=== PATIENT | female | born 1975 | race Caucasian/White ===

== ENCOUNTER 2016-05-11 08:20 | Outpatient (CLI) | payer MEDICAID | END 2016-05-11 08:21 | disposition home or self-care (01) | DX: E66.9 Obesity, unspecified (principal); F41.8 Other specified anxiety disorders ==

== ENCOUNTER 2017-10-13 12:08 | Emergency (ER) | payer MEDICAID ==
[2017-10-13 12:14] VITALS: BP 144/84
--- NOTE | 2017-10-13 12:59 | ED Physician Documentation ---
PD HPI OPHTHO - Stated complaint Stated Complaint: R EYE REDNESS - Chief complaint Chief Complaint: Heent - History obtained from History obtained from: Patient - History of Present Illness Timing - onset: How many days ago (2) Timing - duration: Days (2) Timing - details: Gradual onset, Still present Location: Right Quality / character: Itching, Burning Associated symptoms: Redness, Swelling Similar symptoms before: Diagnosis (staph infection in eyelid) Recently seen: Not recently seen - Additional information Additional information: Previously well 42-year-old female is developed some swelling and burning sensation to the right eye. She has had this happen to her previously with staph infection that required oral antibiotic as well as drops. She has also had previously shingles in the cheek on that side. She has not had shingles on the cornea. She denies foreign body sensation she does have some photosensitivity. Review of Systems Constitutional: denies: Fever Eyes: reports: Photophobia, Discharge, Irritation. denies: Decreased vision Ears: denies: Ear pain Nose: denies: Rhinorrhea / runny nose, Congestion Throat: denies: Sore throat Cardiac: denies: Chest pain / pressure, Palpitations Respiratory: denies: Dyspnea, Cough PD PAST MEDICAL HISTORY - Past Medical History Past Medical History: Yes Cardiovascular: None Respiratory: Asthma, Sleep apnea GI: None : None Psych: Depression Musculoskeletal: None Derm: Herpes zoster - Past Surgical History Past Surgical History: Yes HEENT: Myringotomy (tubes), Tonsil/Adenoidectomy - Present Medications Home Medications: Ambulatory Orders Medication Instructions Recorded Confirmed Albuterol Sulfate [Proair Hfa] 8.5 gm IH Q4HR 09/12/12 10/12/14 Lisinopril [Prinivil] 20 mg PO DAILY 09/12/12 10/12/14 Vit D3/Folic Acid/B2/B6/B12 1 intlu PO DAILY 09/18/12 10/12/14 [Folgard Tablet] Albuterol 2.5 mg INH Q4HR PRN 10/12/14 10/12/14 Cyclobenzaprine [Flexeril] 10 mg ORAL DAILY 10/13/17 10/13/17 Gabapentin 300 mg PO 10/13/17 Neomycin/Poly/Dex Ophth Drops 1 drops RIGHTEYE QID #1 bottle 10/13/17 [Maxitrol Ophth Drops] - Allergies Allergies/Adverse Reactions: Allergies Allergy/AdvReac Type Severity Reaction Status Date / Time Penicillins Allergy Intermediate Rash Verified 10/13/17 12:14 - Social History Does the pt smoke?: No Smoking Status: Never smoker Does the pt drink ETOH?: Yes Does the pt have substance abuse?: No - Immunizations Immunizations: TDAP current <10years - POLST Patient has POLST: No PD ED PE NORMAL - Vitals Vital signs reviewed: Yes (hypertensive) - General General: No acute distress, Well developed/nourished - HEENT HEENT: Atraumatic, PERRL, EOMI, Ears normal, Moist mucous membranes, Pharynx benign, Dentition benign, Other (There is swelling and tenderness to the medial lower lid on the right side. There scleral injection and there is no obvious corneal involvment. ) - Respiratory Respiratory: No respiratory distress - Derm Derm: Normal color, Warm and dry, No rash - Extremities Extremities: No deformity, No edema - Neuro Neuro: Alert and oriented X 3, showroom consultant 2-12 intact, No motor deficit, No sensory deficit, Normal speech Eye Opening: Spontaneous Motor: Obeys Commands Verbal: Oriented GCS Score: 15 - Psych Psych: Normal mood, Normal affect Results - Vitals Vitals: Vital Signs - 24 hr 10/13/17 12:12 Temperature 36.3 C L Heart Rate 78 Respiratory 18 Rate Blood Pressure 144/84 H O2 Saturation 97 Oxygen O2 Source Room air PD MEDICAL DECISION MAKING - ED course Complexity details: reviewed old records, considered differential, d/w patient ED course: 42-year-old female with swelling of the right lower eyelid does not have an obvious chalazion or stye she does have swelling consistent with bacterial infection. I do not see any obvious vesicles to suggest herpes and the cornea does not appear to be involved. She was placed on Maxitrol I drops and will have follow-up with her primary. - Sepsis Event Vital Signs: Vital Signs - 24 hr 10/13/17 12:12 Temperature 36.3 C L Heart Rate 78 Respiratory 18 Rate Blood Pressure 144/84 H O2 Saturation 97 Oxygen O2 Source Room air Departure - Departure Disposition: 01 Home, Self Care Clinical Impression: Conjunctivitis Qualifiers: Conjunctivitis type: acute Acute conjunctivitis type: bacterial Laterality: right Qualified Code(s): H10.31 - Unspecified acute conjunctivitis, right eye Condition: Stable Instructions: ED Conjunctivitis Bacterial Follow-Up: Jessica Valencia ARNP [Primary Care Provider] - Prescriptions: Neomycin/Poly/Dex Ophth Drops [Maxitrol Ophth Drops] 1 drops RIGHTEYE QID #1 bottle
== END 2017-10-13 13:09 | disposition home or self-care (01) ==
LOC: ED 12:08
DX: H10.31 Unspecified acute conjunctivitis, right eye (principal)
CPT/HCPCS: 99283

== ENCOUNTER 2018-09-10 11:31 | Outpatient (CLI) | payer MEDICAID | END 2018-09-10 11:32 | disposition EMS.NT | LOC: EMS 11:31 | PROVIDERS: ATTEND Surgery | DX: R07.89 Other chest pain (principal); R10.9 Unspecified abdominal pain ==

== ENCOUNTER 2018-10-29 11:15 | Outpatient (CLI) | payer MEDICAID ==
[2018-10-29 12:22] VITALS: BP 140/70
--- NOTE | 2018-10-29 12:22 | SLEEP CARE CONSULTATION ---
Information from patient questionnaire entered by Merissa Dee. I have reviewed and concur with the information entered by Merissa Dee. This document represents the service I personally performed and the decisions made by me, Mahad Adan MD, [facility]. History of Present Illness Reason for Visit: New patient, Previously diagnosed sleep apnea (MODERATE KIM AHI 28.7), Re-establish care Chief Complaint: reports: Insomnia, Unrefreshed sleep, Snoring, Observed pauses in breathing, Fatigue, Frequent awakenings at night, Other Usual bedtime: 2100 Time it takes to fall asleep: 15-30 MINUTES Snores at night: Yes Observed to quit breathing while asleep: Yes Sleeps alone due to snoring: No Number of times waking at night: 2-5 Reasons for waking at night: reports: Snoring, Pain, Bathroom Toss, Turn, or Twitch while sleeping: Yes Recalls having dreams: Yes Usually gets out of bed at: [id number] Feels refreshed in the morning: No Morning headache: Yes (SOMETIMES) Sleepy or fatigued during the day: Yes (SLEEPY MORE AT THE ENDOF MY WORK WEEK. MORE FATIGUED) Ever fallen asleep while driving: Yes (YEARS AGO, NOT RECENTLY) Takes day naps: Yes (RARELY) Dreams during day naps: Yes (SOMETIMES) Prior sleep studies: Yes Year and Where: 2007 [facility] Additional HPI information: I had the pleasure of seeing Ms. Starr today regarding obstructive sleep apnea- hypopnea. As you know, she is a 43 year old lady who was diagnosed here over a decade ago with moderate obstructive sleep apnea-hypopnea (AHI was 28.7). She tried to use CPAP for a short time then quit. She continues to snore and relatives see her quit breathing at night. She feels tired and sleepy during the day. She is hoping that the equipment has improved and she would be able to tolerate it this time around. 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 Patient is Single and lives in [place]. Have you smoked in the past 12 months: Yes Cigarettes per day (20/pack): 30 Years of smokin Quit date: 2012 Smoking Pack Years: 13.5 Alcohol use: Yes Alcohol amount and frequency: 1-2 BEERS, 2-3 TIMES/YEAR Caffeine use: Yes Caffeine amount and frequency: 3-4 SODAS, 1-2 CUPS OF COFFEE Allergies and Home Medications Drug allergies reviewed: Yes Home medication list reviewed: Yes Review of Systems Weight gain over past 5 years: 20 Cardiovascular: reports: high blood pressure, leg or foot swelling Respiratory: reports: shortness of breath Gastrointestinal: reports: heartburn, other (GASTRITIS) Urinary: reports: frequency Neurological: reports: headaches Psychiatric: reports: anxiety, depression Endocrine: reports: sluggishness, too hot or cold, increased appetite, increased urination Immunologic: reports: sneezing, itching Physical Exam Vital signs obtained and entered by: Dr. Adan Blood Pressure: 140/70 Cuff size: long Heart Rate: 59 O2 Saturation: 94 Height: 5 ft 3 in Weight (kg): 325 lb Body Mass Index: 57.5 BMI Classification: Class 3 Neck circumference: 17 Mood/affect: Normal HEENT: No craniofacial malformation Nostrils: patent to airflow Turbinates: normal Septum: midline Mouth and throat: narrow oropharynx Soft palate: long Hard palate: normal Uvula: normal Uvula visualization: 0% Mallampati Class IV Tongue: normal in size Tonsils: absent bilaterally Chin and jaw: normal size and position Neck: normal w/o lymphadenopathy or thyromegaly Heart: regular rate and rhythm Lungs: clear bilaterally Abdomen: soft Extremities: 1+ edema Neurologic: intact Impression and Plan IMPRESSION: 1. Obstructive Sleep Apnea-Hypopnea Syndrome, as previously diagnosed and suggested by history of loud and irregular snoring, observed cessation of breath while asleep, frequent awakenings during the night, unrefreshed sleep, cognitive impairment, and daytime hypersomnolence. Narrow oropharynx and obesity are common predisposing factors for obstructive sleep apnea-hypopnea syndrome. Pathophysiology of sleep-disordered breathing was discussed. Because it has been over a dacade, I recommend repeating the polysomnography to confirm the diagnosis and to reassess severity. If she has significant sleep disordered breathing, a manual CPAP titration study will also be performed to find the optimal treatment pressure. I informed the patient of what the sleep studies involve and after some discussion, she agreed to proceed. Plan: 1. Schedule polysomnography + manual CPAP titration study and return in 1 to 2 weeks after the study to discuss result and initiate therapy. 2. Avoid long distance driving or when feeling sleepy. 3. Avoid alcohol, sedative and muscle relaxant around bedtime. 4. Attempt to lose weight. Bariatric surgery appears indicated. I spent 100% of this 15 minute visit face to face with the patient with greater than 50% of this was spent time counseling the patient and coordination of care.
== END 2018-10-29 11:16 | disposition home or self-care (01) ==
LOC: SC 11:15
PROVIDERS: ATTEND Internal Medicine Pulmonary Disease
DX: G47.33 Obstructive sleep apnea (adult) (pediatric) (principal); Z87.891 Personal history of nicotine dependence
CPT/HCPCS: 99203; 99212

== ENCOUNTER 2018-11-21 20:55 | Outpatient (CLI) | payer MEDICAID | END 2018-11-21 20:56 | disposition home or self-care (01) | LOC: SC 20:55 | PROVIDERS: ATTEND Internal Medicine Pulmonary Disease | DX: G47.33 Obstructive sleep apnea (adult) (pediatric) (principal); G47.61 Periodic limb movement disorder; E66.9 Obesity, unspecified; Z68.43 Body mass index [BMI] 50.0-59.9, adult | CPT/HCPCS: 95810 ==

== ENCOUNTER 2018-12-22 10:16 | Emergency (ER) | payer SELFPAY ==
[2018-12-22 10:26] VITALS: BP 158/99
[2018-12-22] MEDS ORDERED: PROPARACAINE 0.5% OPHTH DROPS 15 ML RIGHTEYE STA (11:29)
--- NOTE | 2018-12-22 11:54 | ED Physician Documentation ---
PD HPI OPHTHO - Stated complaint Stated Complaint: RT EYE PX - Chief complaint Chief Complaint: Heent - History obtained from History obtained from: Patient - History of Present Illness Timing - onset: How many days ago (2) Timing - duration: Days (2) Timing - details: Gradual onset, Still present Location: Right Quality / character: Itching, Throbbing Associated symptoms: Redness, Swelling, Tearing, Discharge Contributing factors: No: Recent URI, FB Similar symptoms before: Diagnosis (conjunctivitis) Recently seen: Not recently seen - Additional information Additional information: 43-year-old female has had a prior history of bacterial conjunctivitis has recurrence of her similar symptoms. She has not had herpes keratitis previously she has had shingles on that side of her face and she has not had an outbreak recently. She denies any foreign body sensation she denies any change in her vision she does state that she had good relief of her symptoms previously with the eyedrops provided here. Review of Systems Constitutional: denies: Fever Eyes: reports: Discharge, Irritation. denies: Loss of vision, Decreased vision, Photophobia Ears: denies: Ear pain Nose: denies: Rhinorrhea / runny nose, Congestion Respiratory: denies: Cough GI: denies: Vomiting PD PAST MEDICAL HISTORY - Past Medical History Past Medical History: Yes Cardiovascular: None Respiratory: Asthma, Sleep apnea GI: None : None Psych: Depression Musculoskeletal: None Derm: Herpes zoster - Past Surgical History Past Surgical History: Yes HEENT: Myringotomy (tubes), Tonsil/Adenoidectomy - Present Medications Home Medications: Ambulatory Orders Medication Instructions Recorded Confirmed Albuterol Sulfate [Proair Hfa] 8.5 gm IH Q4HR 09/12/12 10/12/14 Lisinopril [Prinivil] 20 mg PO DAILY 09/12/12 10/12/14 Vit D3/Folic Acid/B2/B6/B12 1 intlu PO DAILY 09/18/12 10/12/14 [Folgard Tablet] Albuterol 2.5 mg INH Q4HR PRN 10/12/14 10/12/14 Cyclobenzaprine [Flexeril] 10 mg ORAL DAILY 10/13/17 10/13/17 Gabapentin 300 mg PO 10/13/17 Neomycin/Poly/Dex Ophth Drops 1 drops RIGHTEYE QID #1 bottle 10/13/17 [Maxitrol Ophth Drops] Neomycin/Poly/Dex Ophth Drops 1 drops RIGHTCRYSTAL QID #1 bottle 12/22/18 [Maxitrol Ophth Drops] - Allergies Allergies/Adverse Reactions: Allergies Allergy/AdvReac Type Severity Reaction Status Date / Time Penicillins Allergy Intermediate Rash Verified 12/22/18 10:19 - Social History Does the pt smoke?: No Smoking Status: Never smoker Does the pt drink ETOH?: Yes Does the pt have substance abuse?: No - Immunizations Immunizations: TDAP current <10years - POLST Patient has POLST: No PD ED PE NORMAL - Vitals Vital signs reviewed: Yes (hypertensive ) - General General: Alert and oriented X 3, No acute distress, Well developed/nourished - HEENT HEENT: Atraumatic, PERRL, EOMI, Other (There is injection and exudate to the lower lid. There is no distortion of the eye, no hyphema and no fluorocien uptake to the cornea. There is no FB. ) - Neck Neck: Supple, no meningeal sign - Respiratory Respiratory: No respiratory distress - Extremities Extremities: No deformity, No edema - Neuro Neuro: Alert and oriented X 3, special client bus driver 2-12 intact, No motor deficit, No sensory deficit, Normal speech Eye Opening: Spontaneous Motor: Obeys Commands Verbal: Oriented GCS Score: 15 - Psych Psych: Normal mood, Normal affect Results - Vitals Vitals: Vital Signs - 24 hr 12/22/18 10:19 Temperature 36.5 C Heart Rate 62 Respiratory 16 Rate Blood Pressure 158/99 H O2 Saturation 94 Oxygen O2 Source Room air PD MEDICAL DECISION MAKING - ED course Complexity details: considered differential, d/w patient ED course: 43 y/o female with what appears to be bacterial conjunctivitis and no evidence of flouroscein uptake. I do not suspect herpes keritoconjunctivitis and she has responded well to prior treatment with maxitrol and we will provide this again. Departure - Departure Disposition: 01 Home, Self Care Clinical Impression: Conjunctivitis Qualifiers: Conjunctivitis type: acute Acute conjunctivitis type: bacterial Laterality: right Qualified Code(s): H10.31 - Unspecified acute conjunctivitis, right eye Condition: Stable Instructions: ED Conjunctivitis Bacterial Follow-Up: Jennifer Beavers ARNP [Primary Care Provider] - Prescriptions: Neomycin/Poly/Dex Ophth Drops [Maxitrol Ophth Drops] 1 drops RIGHTEYE QID #1 bottle
== END 2018-12-22 12:08 | disposition home or self-care (01) ==
LOC: ED 10:16
DX: H10.31 Unspecified acute conjunctivitis, right eye (principal)
CPT/HCPCS: 99282; 99284; J3490

== ENCOUNTER 2019-05-26 16:33 | Outpatient (CLI) | payer OTHER ==
--- NOTE | 2019-05-26 23:12 | SLEEP CARE CONSULTATION ---
Information from patient questionnaire entered by Jocelynn Saleh. I have reviewed and concur with the information entered by Jocelynn Saleh. This document represents the service I personally performed and the decisions made by me, Mahad Adan MD, [facility]. History of Present Illness Initial [place] Sleepiness Scale score: 8 Additional HPI information: To minimize the risk of COVID-19 exposure, we have the option to conduct your visit with me over the phone. I will be able to discuss your health and offer medical advice. If you agree, we will bill your insurance. Do you agree to this telephone service: YES HPI: returned called to follow up of the sleep study she had last year. The polysomnography showed that The patient had slightly reduced sleep efficiency due to sleep onset insomnia. The sleep architecture was normal. Respiratory monitoring showed moderate obstructive sleep apnea-hypopnea (AHI = 18.3) associated with frequent arousals, oxyhemoglobin desaturation and moderate hypoxia (nicole oxygen saturation of 73%). Baseline oxygen saturation was normal. The respiratory events occurred mainly during REM sleep (supine AHI = 14.4; non- supine = 18.42). Snore was loud in intensity. There was mild periodic leg movement of sleep not associated with sleep fragmentation. Cardiac rhythm was normal sinus rhythm without significant arrhythmia. No abnormal behavior (parasomnia) observed during the night. The patient was informed of these findings. I explained to her the pathophysiology behind obstructive sleep apnea. We then spent quite a bit of time discussing different treatment options. For mild obstructive sleep apnea, surgery and oral appliance are alternatives to nasal CPAP therapy but in moderate or severe cases, nasal CPAP is the most effective and reliable emely tment. After some discussion, she opted to try CPAP again. She said last time the pressure was too high and she could not stop the mask from leaking. Allergies and Home Medications Drug allergies reviewed: Yes Home medication list reviewed: Yes Review of Systems Review of systems same as previous: Yes Physical Exam Height: 5 ft 3 in Impression and Plan IMPRESSION: 1. Obstructive Sleep Apnea-Hypopnea Syndrome, moderate, associated with moderate hypoxemia and sleep fragmentation. Most likely, this is the cause of the patients symptoms of unrefreshed sleep, and excessive daytime s leepiness. As mentioned above, the patient will be started on autoCPAP set low at 4 - 8 cmH2O. Depending on her response and compliance she may be brought back for an overnight CPAP titration study. PLAN: 1. Prescription made for an autoCPAP with heated humidifier and related supplies. 2. Attempt to lose weight. 3. Be careful when driving until her sleepiness resolves completely on nasal CPAP therapy. 4. Return in one month for follow up. I will assess her response and compliance at that time. I spent 100% of the 12 minute phone call with the patient with greater than 50% of this spent counseling the patient and coordination of care.
== END 2019-05-26 16:34 | disposition home or self-care (01) ==
LOC: SC 16:33
PROVIDERS: ATTEND Internal Medicine Pulmonary Disease
DX: G47.33 Obstructive sleep apnea (adult) (pediatric) (principal); G47.61 Periodic limb movement disorder

== ENCOUNTER 2019-08-27 15:46 | Outpatient (CLI) | payer OTHER ==
[2019-08-27 17:23] VITALS: BP 140/100
--- NOTE | 2019-08-27 17:23 | SLEEP CARE CONSULTATION ---
Information from patient questionnaire entered by Jocelynn Saleh. I have reviewed and concur with the information entered by Jocelynn Saleh. This document represents the service I personally performed and the decisions made by me, Neha Wiley, RN, MSN, SIDING [employer]ICATOR. History of Present Illness Service Date and Time: 08/27/2019 1546 Previous diagnosis: Moderate, Obstructive Sleep Apnea-Hypopnea Syndrome AHI: 18.3 (in 2019)(28.7 in 2007) Reason for follow up: first compliance after device update (patient tried CPAP in 2007 and unable to tolerate so re-evaluated ) Equipment type: CPAP Equipment obtained from: [facility] (in [place]) Mask style: Full face Backup mask available: No (keep current mask as spare when replaced) Last cushion change: no supplies since set up Prior sleep studies: Yes Year and Where: 2018 and 2007 - [facility] Type of Sleep Study: Polysomnography CPAP Compliance Data - Data Reviewed with Patient Average duration of nightly device use: 5.75 Compliance rate %: 86.7 Current pressure setting (cmH2O): 4-8 Humidity settin Heated hose settin Average residual AHI: 3.3 Average large leak: 11 min 12 sec Subjective Patient concerns: reports: mask discomfort (base of skull headache where headgear sits - mask not tight), dry mouth, nose, throat (mild mouth / throat occasionally), other (tingling/itchiness at mask site occasionally 1-2 times a week briefly - no reddness- ). denies: aerophagia, air blowing in eyes, mask leak noise, condensation in mask/hose, nasal congestion, epistaxis Observed to snore while using device: No Current pressure setting perceived as: comfortable On therapy, patient: reports: sleeping better, awakening more refreshed, being more awake and alert during the day, more rested overall. denies: drowsiness while driving Initial [place] Sleepiness Scale score: 9 (in 2007) Current [place] Sleepiness Scale score: 9 Allergies and Home Medications Known drug allergies: Yes (penicillins) Home medication list reviewed: No (no changes ) Review of Systems Review of systems same as previous: No (headache frequency increase and increase in allergies) Physical Exam Blood Pressure: 140/100 (usually 130/90) Cuff size: long Heart Rate: 65 O2 Saturation: 95 Height: 5 ft 3 in Weight: 328 lb 9.6 oz Body Mass Index: 58.1 BMI Classification: Morbidly Obese Impression and Plan 1. Obstructive Sleep Apnea-Hypopnea Syndrome, moderate, with good treatment compliance and good apnea control. On CPAP therapy, the patient has better sleep quality and is more rested overall. Oral dryness can be reduced by adjusting humidity setting higher or heated hose lower or by adjusting both settings with rationale explaining why to change. Verbal instructions. Oral dryness can also be reduced by reducing mask leaks. Patient advised that chronic oral dryness can affect dental health and advised to follow up with dentist. Oral dryness products can be used. Patient to discuss best option with dentist. To reduce intermittent itching / tingling sensation, I discussed use of cloth barriers that can be found online to see if resolves symptoms. Patient has lost weight and plans on losing more. Currently patients BMI is 57.4 obesity class . Obesity increases the risk of apnea, CPAP pressure requirements and overall health risks especially cardiovascular and diabetes. Thus patient is advised to continue to lose weight. Weight loss can be done with reducing portion size, reducing refined foods and balancing content with vegetables, fruit and protein. In addition tracking food intake will allow awareness of how to modify diet to achieve weight loss goals. Also eating more slowly will allow more awareness of food intake and enjoyment of food while assisting patient to modify intake at each meal. A diet consultation can be helpful in achieving optimal weight loss goals but patient states insurance does not cover. The BMI chart was reviewed. Patient encouraged to discuss their weight loss goals with their PCP and consider a referral to a log deck tender. The patient's CPAP pressure range should accommodate some weight loss. Symptoms to report for additional pressure adjustment discussed.Patient's apnea severity and rationale for treatment to reduce apnea, improve sleep quality and reduce hypertension, cardiovascular and cerebrovascular events was reviewed. Maximum benefit of CPAP is obtained with sufficient sleep. Patient advised to obtain more sleep. 2. Headaches, base of skull, intermittent. Reports history of intermittent episodes of headaches and testing done about 10 years ago. Informed at that time they were cluster headaches. Her headaches have increased the in frequency past 3 months, 2-3 times a week. Pain range 7-9 of 1-10 scale and are resolved with 4 -200mg ibuprofens. She is aware to go to ER if headache worsens and unable to resolve with current ibuprofen. She has not seen her PCP yet for further evaluation. She noted increased frequency past week with increase in allergies. She also notes that headgear of CPAP mask can aggravate headache. Thus for mask comfort she is advised to place a barrier such as folded wash cloth. She is aware not to overtighten the mask. 3. Elevated Blood pressure. Patient does not monitor at home but is on blood pressure medications. I reviewed risks of uncontrolled blood pressure and the importance of monitoring at home so her PCP can modify medications as needed for best control. Guidelines for urgent follow up discussed. I also informed her that headaches can be a symptom of high blood pressure as well as other medical problems. She is advised to follow up with PCP for further evaluation and di scuss home monitoring. Patient agreed with plan. * Continue auto CPAP pressure at 4-8 cmH2O * Implement methods to reduce oral dryness. * Notify me if snoring with mask or feeling that the pressure is too much or too little * Attempt to lose weight * Call this office if any problems using CPAP * Follow up with PCP for further evaluation of headaches and elevated blood pressure. * Return for follow up in 3 months , or sooner if concerns arise Visit Type: In Office Time Spent with Patient (minutes): 35 Provider Statement: I spent 100% of the Face to Face Visit with the patient with greater than 50% spent counseling the patient and coordination of care.
== END 2019-08-27 15:47 | disposition home or self-care (01) ==
LOC: SC 15:46
PROVIDERS: ATTEND Nurse Practitioner Family
DX: G47.33 Obstructive sleep apnea (adult) (pediatric) (principal); R51 Headache; R03.0 Elevated blood-pressure reading, without diagnosis of hypertension; E66.01 Morbid (severe) obesity due to excess calories; Z68.43 Body mass index [BMI] 50.0-59.9, adult
CPT/HCPCS: 99212; 99214

== ENCOUNTER 2019-12-02 08:08 | Outpatient (CLI) | payer OTHER ==
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
== END 2019-12-02 08:09 | disposition home or self-care (01) ==
LOC: SC 08:08
PROVIDERS: ATTEND Nurse Practitioner Family
DX: G47.33 Obstructive sleep apnea (adult) (pediatric) (principal); E66.01 Morbid (severe) obesity due to excess calories; Z68.43 Body mass index [BMI] 50.0-59.9, adult
CPT/HCPCS: 99212; 99213

== ENCOUNTER 2020-02-06 08:09 | Outpatient (CLI) | payer OTHER ==
--- NOTE | 2020-02-06 08:52 | SLEEP CARE CONSULTATION ---
Information from patient questionnaire entered by Jocelynn Saleh. I have reviewed and concur with the information entered by Jocelynn Saleh. This document represents the service I personally performed and the decisions made by , Dyana Baron ARNP. History of Present Illness Service Date and Time: 02/06/2020 08 Previous diagnosis: Moderate, Obstructive Sleep Apnea-Hypopnea Syndrome AHI: 18.3 (in 2019)(28.7 in 2008) Reason for follow up: other (6 week with pressure change) Equipment type: CPAP Equipment obtained from: [facility] (in [place] ; getting supplies as needed) Mask style: Full face Backup mask available: Yes (other mask) Last cushion change: 1 month Prior sleep studies: Yes Year and Where: 2007 - [facility] additional information: SOCORRO FARR was diagnosed to have moderate, AHI 18.3, obstructive sleep apnea-hypopnea syndrome and returned today for CPAP therapy six week pressure change follow-up. CPAP Compliance Data - Data Reviewed with Patient Average duration of nightly device use: 6 hr 53 min Compliance rate %: 70 Current pressure setting (cmH2O): 4-8 Humidity settin Heated hose settin Average residual AHI: 2.1 Average large leak: 8 min 8 sec Subjective Missed days of use due to: reports: other (Facial irritation and forgetting to buy distilled water) Patient concerns: reports: mask discomfort, air blowing in eyes, dry mouth, nose, throat (dry lips). denies: aerophagia, mask leak noise, condensation in mask/hose, nasal congestion, epistaxis, other Observed to snore while using device: No Current pressure setting perceived as: comfortable On therapy, patient: reports: sleeping better, awakening more refreshed, being more awake and alert during the day, more rested overall. denies: drowsiness while driving Initial [place] Sleepiness Scale score: 9 (in 2007) Current [place] Sleepiness Scale score: 6 Allergies and Home Medications Drug allergies reviewed: Yes (penicillins) Home medication list reviewed: Yes (no changes) Review of Systems Review of systems same as previous: Yes (no changes) Physical Exam Heart Rate: 73 O2 Saturation: 97 Height: 5 ft 3 in Weight: 318 lb Weight change since last visit: 2 lb Body Mass Index: 56.3 BMI Classification: Morbidly Obese Impression and Plan 1. Obstructive Sleep Apnea-Hypopnea Syndrome, moderate, with fair treatment compliance and good apnea control. On CPAP therapy, the patient has better sleep quality and is more rested overall. She has been having skin irritation and rashes around her mouth and some dry lips. I advised, since she really likes the mask style, to obtain some mask liners for a barrier between mask plastic and face. She also gets air in her left eye which is puffy in the mornings. She started using an eye cover sleeping mask which is helping. I encouraged her to also try a gel type eye moisturizer at night to reduce eye dryness. She voiced understanding and agreement with plan. 2. Obesity, unspecified. Patient has lost 2 pounds since last visit. Currently patients BMI is 56.3. Obesity increases the risk of apnea, CPAP pressure requirements and overall health risks especially cardiovascular and diabetes. Thus patient is advised to continue to lose weight. Patient's apnea severity and rationale for treatment to reduce apnea, improve sleep quality and reduce cardiovascular and cerebrovascular events was reviewed. I also reviewed the benefit of consistent device use of CPAP for hypertension and migraines. * Continue auto CPAP pressure at 4-8 cmH2O * Obtain mask liner to reduce skin irritation from mask * Notify me if snoring with mask or feeling that the pressure is too much or too little * Attempt to lose weight * Call this office if any problems using CPAP * Return for follow up in 3 months , or sooner if concerns arise Counseling Topics: Spare mask, Weight loss health impact Visit Type: In Office Time Spent with Patient (minutes): 20 Provider Statement: I spent 100% of the Face to Face Visit with the patient with greater than 50% spent counseling the patient and coordination of care.
== END 2020-02-06 08:10 | disposition home or self-care (01) ==
LOC: SC 08:09
PROVIDERS: ATTEND Nurse Practitioner Family
DX: G47.33 Obstructive sleep apnea (adult) (pediatric) (principal); E66.01 Morbid (severe) obesity due to excess calories; Z68.43 Body mass index [BMI] 50.0-59.9, adult
CPT/HCPCS: 99212; 99213

== ENCOUNTER 2020-03-27 10:32 | Outpatient (CLI) | payer OTHER ==
[2020-03-27 15:02] LABS: ALBUMIN 3.9 g/dL (3.2-5.5); BILIRUBIN,TOTAL 0.6 mg/dL (0.2-1.0); CREATININE 0.7 mg/dL (0.4-1.0); TOTAL PROTEIN 7.9 g/dL (6.7-8.2)
== END 2020-03-27 23:59 | disposition home or self-care (01) ==
LOC: LAB.S 10:32
PROVIDERS: ATTEND Physician Assistant Medical
DX: I10 Essential (primary) hypertension (principal)
CPT/HCPCS: 36415; 80053; 84443; 85025

== ENCOUNTER 2020-04-01 07:26 | Outpatient (CLI) | payer OTHER ==
[2020-04-01 15:01] LABS: BASOPHILS # (AUTO) 0.1 10^3/uL (0.0-0.1); BASOPHILS % (AUTO) 1.1 %; EOSINOPHILS # (AUTO) 0.3 10^3/uL (0.0-0.7); EOSINOPHILS % (AUTO) 3.4 %; HGB - HEMOGLOBIN 12.8 g/dL (12.0-16.0); LYMPHOCYTES # (AUTO) 2.1 10^3/uL (1.5-3.5); LYMPHOCYTES % (AUTO) 26.2 %; MEAN CORPUSCULAR HEMOGLOBIN 24.8 pg (27.0-31.0); MEAN CORPUSCULAR VOLUME 82.6 fL (81.0-99.0); MEAN PLATELET VOLUME 10.9 fL (7.9-10.8); MONOCYTES # (AUTO) 0.5 10^3/uL (0.0-1.0); MONOCYTES % (AUTO) 6.3 %; NEUTROPHILS # (AUTO) 4.9 10^3/uL (1.5-6.6); NEUTROPHILS % (AUTO) 62.5 %; PLT - PLATELET COUNT 453 10^3/uL (130-450); RED BLOOD COUNT 5.17 10^6/uL (4.20-5.40); RED CELL DISTRIBUTION WIDTH 15.8 % (12.0-15.0); WHITE BLOOD COUNT 7.9 x10^3/uL (4.8-10.8)
== END 2020-04-01 07:27 | disposition home or self-care (01) ==
LOC: LAB.S 07:26
PROVIDERS: ATTEND Registered Nurse
DX: I10 Essential (primary) hypertension (principal)
CPT/HCPCS: 36415; 85025

== ENCOUNTER 2020-05-06 07:52 | Outpatient (CLI) | payer OTHER ==
--- NOTE | 2020-05-06 08:22 | SLEEP CARE CONSULTATION ---
Information from patient questionnaire entered by Jocelynn Saleh. I have reviewed and concur with the information entered by Jocelynn Saleh. This document represents the service I personally performed and the decisions made by , Dyana Baron ARNP. History of Present Illness Service Date and Time: 05/06/2020 0752 Previous diagnosis: Moderate, Obstructive Sleep Apnea-Hypopnea Syndrome AHI: 18.3 (in 2019)(28.7 in 2008) Reason for follow up: three month Equipment type: CPAP Equipment obtained from: [facility] (in [place] ; getting supplies as needed) Mask style: Full face Backup mask available: Yes (other mask) Last cushion change: 2-3 days ago Prior sleep studies: Yes Year and Where: [address] - [facility] Sleep H[facility] additional information: SOCORRO FARR was diagnosed to have moderate, AHI 18.3, obstructive sleep apnea-hypopnea syndrome and returned today for CPAP therapy three month follow- up. CPAP Compliance Data - Data Reviewed with Patient Average duration of nightly device use: 5 hr 56 min Compliance rate %: 51.1 (90 days) Current pressure setting (cmH2O): 4-8 Humidity settin Heated hose settin Average residual AHI: 2.4 Average large leak: 11 min 3 sec Subjective Missed days of use due to: reports: mask issues, illness (shingles on face), other (hose issues) Patient concerns: reports: dry mouth, nose, throat. denies: aerophagia, mask discomfort, air blowing in eyes, mask leak noise, condensation in mask/hose, nasal congestion, epistaxis, other Observed to snore while using device: No Current pressure setting perceived as: comfortable On therapy, patient: reports: sleeping better, awakening more refreshed, being more awake and alert during the day, more rested overall. denies: drowsiness while driving Initial [place] Sleepiness Scale score: 9 (in 2007) Current [place] Sleepiness Scale score: 1 Allergies and Home Medications Home medication list reviewed: Yes (Chlorthalidone 1/2 pill day; Losartan increased to 100 mg; Aspirin daily) Review of Systems Review of systems same as previous: Yes (no changes) Physical Exam Heart Rate: 71 O2 Saturation: 97 Height: 5 ft 3 in Weight: 313 lb Weight change since last visit: 5 loss Body Mass Index: 55.4 BMI Classification: Morbidly Obese Impression and Plan 1. Obstructive Sleep Apnea-Hypopnea Syndrome, moderate, with fair treatment compliance and good apnea control. On CPAP therapy, the patient has better sleep quality and is more rested overall. She has been using mask liners that is helping with the skin irritation. She has had some challenges, including shingles on her face that limited her ability to use her CPAP. She has resumed daily use but is still at 51% compliance. I will have her follow up in a month to recheck her compliance. Patient has been slowly losing weight, 5 pounds since her last visit. She has been walking more and doing stretches daily. Currently patients BMI is 55.4. Obesity increases the risk of apnea, CPAP pressure requirements and overall health risks especially cardiovascular and diabetes. Thus patient is advised to continue to lose weight. Weight loss can be done with reducing portion size, reducing refined foods and balancing content with vegetables, fruit and whole grain foods. The patient's CPAP pressure range should accommodate some weight loss. Symptoms to report for additional pressure adjustment discussed. She has had some mouth dryness. Oral dryness can be reduced by adjusting humidity setting higher or heated hose lower or by adjusting both settings. Verbal instructions given on how to change humidity and heated hose settings with rationale explaining why to change. Patient's apnea severity and rationale for treatment to reduce apnea, improve sleep quality and reduce cardiovascular and cerebrovascular events was reviewed. I also reviewed the benefit of consistent device use of CPAP for hypertension and migraines. * Continue auto CPAP pressure at 4-8 cmH2O * Notify me if snoring with mask or feeling that the pressure is too much or too little * Continue to lose weight * Call this office if any problems using CPAP * Return for follow up in 1 month, or sooner if concerns arise Counseling Topics: Spare mask, Weight loss health impact, Activity level Visit Type: In Office Time Spent with Patient (minutes): 21 Provider Statement: I spent 100% of the Face to Face Visit with the patient with greater than 50% spent counseling the patient and coordination of care.
== END 2020-05-06 07:53 | disposition home or self-care (01) ==
LOC: SC 07:52
PROVIDERS: ATTEND Nurse Practitioner Family
DX: G47.33 Obstructive sleep apnea (adult) (pediatric) (principal); E66.01 Morbid (severe) obesity due to excess calories; Z68.43 Body mass index [BMI] 50.0-59.9, adult
CPT/HCPCS: 99212; 99213

== ENCOUNTER 2020-06-08 07:58 | Outpatient (CLI) | payer OTHER ==
--- NOTE | 2020-06-08 08:43 | SLEEP CARE CONSULTATION ---
Information from patient questionnaire entered by Jocelynn Saleh. I have reviewed and concur with the information entered by Jocelynn Saleh. This document represents the service I personally performed and the decisions made by , Dyana Baron ARNP. History of Present Illness Service Date and Time: 06/08/2020 0758 Previous diagnosis: Moderate, Obstructive Sleep Apnea-Hypopnea Syndrome AHI: 18.3 (in 2019)(28.7 in 2007) Reason for follow up: one month Equipment type: CPAP Equipment obtained from: [facility] (in [place] ; getting supplies as needed) Mask style: Full face Backup mask available: Yes (old mask) Last cushion change: 1.5 weeks Prior sleep studies: Yes Year and Where: 2007 - [facility] additional information: SOCORRO FARR was diagnosed to have moderate, AHI 18.3 (2018) 28.7 (2008), obstructive sleep apnea-hypopnea syndrome and returned today for CPAP therapy one month follow-up. CPAP Compliance Data - Data Reviewed with Patient Average duration of nightly device use: 4 hr 36 min Compliance rate %: 53.3 Current pressure setting (cmH2O): 4-8 Humidity settin Heated hose settin Average residual AHI: 3.4 Average large leak: 26 min 36 sec Subjective Missed days of use due to: reports: mask issues (just started with new mask, may be due to weight loss in face), other (seasonal allergies) Patient concerns: reports: air blowing in eyes, dry mouth, nose, throat (may sleep with mouth open). denies: aerophagia, mask discomfort, mask leak noise, condensation in mask/hose, nasal congestion, epistaxis, other Observed to snore while using device: No Current pressure setting perceived as: comfortable On therapy, patient: reports: sleeping better, awakening more refreshed, being more awake and alert during the day, more rested overall. denies: drowsiness while driving Initial [place] Sleepiness Scale score: 9 (in 2007) Current [place] Sleepiness Scale score: 2 Allergies and Home Medications Drug allergies reviewed: Yes (penicillin) Home medication list reviewed: Yes (no changes) Review of Systems Review of systems same as previous: Yes (no changes) Physical Exam Heart Rate: 71 O2 Saturation: 96 Height: 5 ft 3 in Weight: 318 lb Body Mass Index: 56.3 BMI Classification: Morbidly Obese Impression and Plan 1. Obstructive Sleep Apnea-Hypopnea Syndrome, moderate, with fair treatment compliance and good apnea control. On CPAP therapy, the patient has better sleep quality and is more rested overall. She has been getting a dry mouth and thinks she is sleeping with mouth open. She is using a full face mask, [employer]. I advised her that oral dryness can be reduced by adjusting humidity setting higher or heated hose lower or by adjusting both settings. Patient advised that chronic oral dryness can affect dental health. She has been losing weight and is not sure if the mask is fitting right. She is getting air leaking and the mask has become uncomfortable. This is affecting her compliance, adherence to wearing the mask sufficiently. I will order a mask refitting to try and get her a better fitting mask and follow up with her in 1-2 months to recheck her compliance. Patient's apnea severity and rationale for treatment to reduce apnea, improve sleep quality and reduce cardiovascular and cerebrovascular events was reviewed. I also reviewed the benefit of consistent device use of CPAP for hypertension and migraines. * Continue autoCPAP pressure at 4-8 cmH2O * Mask refitting * Notify me if snoring with mask or feeling that the pressure is too much or too little * Continue to try to lose weight * Call this office if any problems using CPAP * Return for follow up in 1-2 months to recheck compliance, or sooner if concerns arise Counseling Topics: Spare mask, Weight loss health impact Visit Type: In Office Time Spent with Patient (minutes): 20 Provider Statement: I spent 100% of the Face to Face Visit with the patient with greater than 50% spent counseling the patient and coordination of care.
== END 2020-06-08 07:59 | disposition home or self-care (01) ==
LOC: SC 07:58
PROVIDERS: ATTEND Nurse Practitioner Family
DX: G47.33 Obstructive sleep apnea (adult) (pediatric) (principal); E66.01 Morbid (severe) obesity due to excess calories; Z68.43 Body mass index [BMI] 50.0-59.9, adult
CPT/HCPCS: 99212; 99213

== ENCOUNTER 2020-08-04 08:00 | Outpatient (CLI) | payer OTHER ==
--- NOTE | 2020-08-04 13:13 | XRAY Report ---
PROCEDURE: Shoulder 3 View LT INDICATIONS: LEFT SHOULDER PAIN TECHNIQUE: 3 views of the shoulder were acquired. COMPARISON: None. FINDINGS: Bones: No fractures or dislocations. No suspicious bony lesions. Visualized ribs appear intact. H umeral head is high riding. Soft tissues: No suspicious soft tissue calcifications. IMPRESSION: High riding humeral head which can be seen with rotator cuff pathology. Reviewed by: Layla Tariq MD on 08/04/2020 1:12 PM PDT Approved by: Layla Tariq MD on 08/04/2020 1:12 PM PDT Station ID: [id number]
== END 2020-08-04 23:59 | disposition home or self-care (01) ==
LOC: DI.S 08:00
PROVIDERS: ATTEND Physician Assistant Medical
DX: M25.512 Pain in left shoulder (principal); G89.29 Other chronic pain

== ENCOUNTER 2020-08-16 10:37 | Outpatient (CLI) | payer OTHER ==
--- NOTE | 2020-08-16 11:02 | SLEEP CARE CONSULTATION ---
Information from patient questionnaire entered by Jocelynn Saleh. I have reviewed and concur with the information entered by Jocelynn Saleh. This document represents the service I personally performed and the decisions made by me, Mahad Adan MD, [facility]. History of Present Illness Service Date and Time: 08/16/2020 1037 Previous diagnosis: Moderate, Obstructive Sleep Apnea-Hypopnea Syndrome AHI: 18.3 (in 2019)(28.7 in 2008) Reason for follow up: other (2 month with pressure change) Equipment type: CPAP Equipment obtained from: [facility] (in [place] ; [employer]) Mask style: Full face Prior sleep studies: Yes Year and Where: 2007 - [facility] HPI additional information: HPI: Ms. Starr returned today for follow up of nasal CPAP therapy. She was diagnosed to have moderate obstructive sleep apnea-hypopnea syndrome. The patient went to [facility] for the equipment and was fitted with a full face mask. She reports using the device nightly and all through the night. The compliance report shows usage in 54 nights out of the past 60 nights, averaging 5 hours a night. She complained of no particular problem with the device such as soreness on the face, dry nose, epistaxis, nasal congestion or headache. She thinks that the pressure of 4 - 8 cmH2O is comfortable. On the CPAP therapy she notices improvement in her sleep quality, and that she wakes up feeling fresher in the morning and more awake/alert during the day. The [place] Sleepiness Scale score 2. Her notices no snore at all. The average residual AHI is 1.8; and average time in large leak per day is 10 minutes. The 90th percentile pressure is 8 cmH2O. In regards to the recall on all [employer] devices, we discussed the risks and benefits of stopping versus continuing to use the device. In severe cases, it appears the benefits outweigh the risks and it is reasonable to continue until the replace part or machine becomes available. Symptoms that could be related to the recalled sound abatement foam piece are headache, nausea, chest tightness, and upper airway irritation. The patients should also look for debris in the air outlet, water reservoir, and hose. If found, the device should not be used. In [id number] cases, the patients should refrain from using the device. CPAP Compliance Data - Data Reviewed with Patient Average duration of nightly device use: 5 hr 2 min Compliance rate %: 71.7 (60 days) Current pressure setting (cmH2O): 4-8 Humidity settin Heated hose settin Average residual AHI: 1.8 Average large leak: 10 min 33 sec Subjective Missed days of use due to: reports: family emergency, illness, other (Stress keeping me awake) Patient concerns: reports: air blowing in eyes Initial [place] Sleepiness Scale score: 9 (in 2007) Current [place] Sleepiness Scale score: 2 Allergies and Home Medications Drug allergies reviewed: Yes Home medication list reviewed: Yes Review of Systems Review of systems same as previous: Yes Physical Exam Height: 5 ft 3 in Weight: 319 lb Weight change since last visit: -6 lbs Body Mass Index: 56.5 BMI Classification: Morbidly Obese Impression and Plan IMPRESSION: 1. Obstructive Sleep Apnea-Hypopnea Syndrome, moderate, with the patient doing well on nasal CPAP therapy. She has excellent compliance and significant clinical improvement. The current pressure appears effective and comfortable. Overall, she is very satisfied with treatment and plans to continue with it long-term. No adjustment is necessary today. The patient decides to continue to use her device. She reports no symptoms. She was instructed to register the device with [employer] to get replacement. PLAN: 1. Continue with autoCPAP set at 4 - 8 cmH2O. 2. Try to lose weight 3. [place] her device at [email or web address]. 4. Return in one year for follow up or earlier if there is any problem with the treatment. Follow up recommended for: Weight management Visit Type: In Office Time Spent with Patient (minutes): 15 Provider Statement: I spent 100% of the Face to Face Visit with the patient with greater than 50% spent counseling the patient and coordination of care.
== END 2020-08-16 10:38 | disposition home or self-care (01) ==
LOC: SC 10:37
PROVIDERS: ATTEND Internal Medicine Pulmonary Disease
DX: G47.33 Obstructive sleep apnea (adult) (pediatric) (principal); E66.01 Morbid (severe) obesity due to excess calories; Z68.43 Body mass index [BMI] 50.0-59.9, adult
CPT/HCPCS: 99212

== ENCOUNTER 2021-03-15 08:00 | Outpatient (CLI) | payer OTHER | END 2021-03-15 23:59 | disposition home or self-care (01) | LOC: LAB.S 08:00 | PROVIDERS: ATTEND Emergency Medicine | DX: U07.1 COVID-19 (principal) ==

== ENCOUNTER 2021-04-10 09:11 | Emergency (ER) | payer OTHER ==
[2021-04-10 09:19] VITALS: BP 177/106
--- NOTE | 2021-04-10 09:26 | ED Physician Documentation ---
PD AVIS HEENT - Stated complaint Stated Complaint: L EAR PAIN/HEAD PAIN - Chief complaint Chief Complaint: Heent - History obtained from History obtained from: Patient - History of Present Illness Timing - onset: How many days ago (2) Timing - duration: Days (2) Timing - details: Gradual onset, Still present Location: Left ear, Other (left face) Improves: Nothing Worsens: Other (palpation of the skin, and movement of the face muscles.) Associated symptoms: No: Fever, Congestion, Facial swelling, Cough Similar symptoms before: Diagnosis (had similar onset and pattern of pain about 5 years ago that evolved into rash and Dx of shingles. She is hoping to start treating earlier this time.) Review of Systems Constitutional: reports: Other (left sided facial pain.). denies: Fever, Chills Eyes: denies: Loss of vision, Photophobia Ears: reports: Ear pain (left) Nose: denies: Rhinorrhea / runny nose, Congestion Throat: denies: Sore throat Respiratory: denies: Cough PD PAST MEDICAL HISTORY - Past Medical History Cardiovascular: None Respiratory: Asthma, Sleep apnea GI: None : None Psych: Depression Musculoskeletal: None Derm: Herpes zoster - Past Surgical History Past Surgical History: Yes HEENT: Myringotomy (tubes), Tonsil/Adenoidectomy - Present Medications Home Medications: Ambulatory Orders Medication Instructions Recorded Confirmed Albuterol Sulfate [Proair Hfa] 8.5 gm IH Q4HR 09/12/12 10/12/14 lisinopriL [Prinivil] 20 mg PO DAILY 09/12/12 10/12/14 Vit D3/Folic Acid/B2/B6/B12 1 intlu PO DAILY 09/18/12 10/12/14 [Folgard Tablet] Albuterol 2.5 mg INH Q4HR PRN 10/12/14 10/12/14 Cyclobenzaprine [Flexeril] 10 mg ORAL DAILY 10/13/17 10/13/17 Gabapentin 300 mg PO 10/13/17 Neomycin/Poly/Dex Ophth Drops 1 drops RIGHTEYE QID #1 bottle 10/13/17 [Maxitrol Ophth Drops] Neomycin/Poly/Dex Ophth Drops 1 drops RIGHTEYE QID #1 bottle 12/22/18 [Maxitrol Ophth Drops] Amitriptyline [Elavil] 25 mg PO HS 14 Days #14 tablet 04/10/21 Valacyclovir HCl [Valtrex] 1,000 mg PO TID #15 tablet 04/10/21 dexAMETHasone [Decadron] 4 mg PO DAILY #5 tablet 04/10/21 oxyCODONE [Roxicodone] 5 mg PO Q6H PRN #20 tablet 04/10/21 - Allergies Allergies/Adverse Reactions: Allergies Allergy/AdvReac Type Severity Reaction Status Date / Time Penicillins Allergy Intermediate Rash Verified 04/10/21 09:19 - Social History Does the pt smoke?: No Smoking Status: Never smoker Does the pt drink ETOH?: Yes Does the pt have substance abuse?: No - Immunizations Immunizations: TDAP current <10years - POLST Patient has POLST: No PD ED PE NORMAL - Vitals Vital signs reviewed: Yes - General General: Alert and oriented X 3, Well developed/nourished - HEENT HEENT: PERRL, EOMI (no light sensitivity. ), Ears normal (no canal lesions. ), Other (left face with skin tenderness without noted rash at this time. ) - Neck Neck: Supple, no meningeal sign, No adenopathy - Cardiac Cardiac: RRR, No murmur - Respiratory Respiratory: Clear bilaterally - Derm Derm: Normal color, Warm and dry Results - Vitals Vitals: Vital Signs - 24 hr 04/10/21 09:15 Temperature 35.9 C L Heart Rate 78 Respiratory 18 Rate Blood Pressure 177/106 H O2 Saturation 97 Oxygen O2 Source Room air PD MEDICAL DECISION MAKING - ED course Complexity details: considered differential (she feels pain onset, intensity, and pattern c/w prior epiosde of shingles in same area. Seems reasonably. ), d/w patient Departure - Departure Disposition: 01 Home, Self Care Clinical Impression: Facial pain, acute Shingles outbreak Qualifiers: Herpes zoster complications: without complications Qualified Code(s): B02.9 - Zoster without complications Condition: Stable Record reviewed to determine appropriate education?: Yes Instructions: ED Shingles Follow-Up: Jennifer Beavers ARNP [Primary Care Provider] - Prescriptions: dexAMETHasone [Decadron] 4 mg PO DAILY #5 tablet Amitriptyline [Elavil] 25 mg PO HS 14 Days #14 tablet oxyCODONE [Roxicodone] 5 mg PO Q6H PRN #20 tablet PRN Reason: Pain Valacyclovir HCl [Valtrex] 1,000 mg PO TID #15 tablet Comments: Maggi acyclovir antiviral medication 3 times daily for the next 5 days. Decadron steroid anti-inflammatory daily for the next 5 days as well. These try to reduce the viral load and also the inflammation of the nerve. Amitriptyline 25 mg at night for the next 2 weeks to reduce the nerve irritation component and lessen the duration of symptoms. Tylenol every 4-6 hours if needed for pain and add oxycodone every 6 hours if needed for worse pain. I transmitted your prescriptions to [facility] in [place]. I am prescribing a short course of narcotic pain medication for you. These are potentially dangerous and addictive medications that should be used carefully. These medications may constipate you. Take an epwr-szd-hidobsz stool softener such as docusate twice daily with plenty of water while taking these medications. If you go 24 hours without a bowel movement, take xnuw-gkx-matiwgl MiraLAX, per package instructions. Do not drink or drive while taking these medications. If you received narcotic or sedating medications while in the emergency department do not drive for 24 hours. Store this medication in a safe, secure place and out of reach of children. It is a violation of federal law to give or sell this medication to another person or to use in a manner other than prescribed. The ED will not refill narcotic prescriptions, including prescriptions lost or stolen. You can dispose of unwanted medications at the [facility]'s office or at several pharmacies such as [facility]. Forms: Activity restrictions Discharge Date/Time: 04/10/21 10:02
[2021-04-10] MEDS ORDERED: oxyCODONE 5 MG TABLET PO STA (09:44)
[2021-04-10] MEDS ORDERED: ACETAMINOPHEN 325 MG TABLET PO STA (09:44)
[2021-04-10] MEDS ORDERED: valACYclovir 500 MG TABLET PO STA (09:44)
[2021-04-10] MEDS ORDERED: CHERRY SYRUP 10 ML UDC PO ONE (09:44)
[2021-04-10] MEDS ORDERED: DEXAMETHASONE 10 MG/ML VIAL PO STA (09:44)
== END 2021-04-10 10:02 | disposition home or self-care (01) ==
LOC: ED 09:11
DX: B02.9 Zoster without complications (principal); G50.1 Atypical facial pain
CPT/HCPCS: 99283; 99284; A9270

== ENCOUNTER 2021-04-25 08:00 | Outpatient (CLI) | payer OTHER ==
--- NOTE | 2021-04-25 10:34 | XRAY Report ---
PROCEDURE: Chest 2 View X-Ray INDICATIONS: ACUTE COUGH TECHNIQUE: 2 view(s) of the chest. COMPARISON: 10/12/2014. FINDINGS: Surgical changes and devices: None. Lungs and pleura: No pleural effusions or pneumothorax. Mildly increased bronchovascular markings in bilateral hilar region are seen with mild bronchial wall thickening. No definite focal infiltrate. Mediastinum: Mediastinal contours are normal. Heart size is normal. Bones and chest wall: No suspicious bony abnormalities. Soft tissues appear unremarkable. IMPRESSION: Finding is suggestive of reactive airway disease such as bronchitis or asthma. No defini te focal infiltrate. No pleural effusion or pneumothorax. Reviewed by: Rene Burr MD on 04/25/2021 10:33 AM [facility] [[email or web address]] Approved by: Rene Burr MD on 04/25/2021 10:33 AM [facility] [[email or web address]] Station ID: [id number]
== END 2021-04-25 23:59 ==
LOC: DI.S 08:00
PROVIDERS: ATTEND Registered Nurse
DX: R05.1 Acute cough (principal)

== ENCOUNTER 2022-01-06 08:00 | Outpatient (CLI) | payer OTHER ==
--- NOTE | 2022-01-06 16:10 | XRAY Report ---
PROCEDURE: Chest 2 View X-Ray INDICATIONS: ACUTE COUGH TECHNIQUE: 2 view(s) of the chest. COMPARISON: 04/25/2021 FINDINGS: Surgical changes and devices: None. Lungs and pleura: No pleural effusions or pneumothorax. Lungs are clear. Mediastinum: Mediastinal contours are normal. Heart size is normal. Bones and chest wall: No suspicious bony abnormalities. Soft tissues appear unremarkable. IMPRESSION: No acute cardiopulmonary pathology. Reviewed by: Rene Burr MD on 01/06/2022 4:08 PM PST Approved by: Rene Burr MD on 01/06/2022 4:08 PM PST Station ID: [id number]
== END 2022-01-06 23:59 | disposition home or self-care (01) ==
LOC: DI.S 08:00
PROVIDERS: ATTEND Physician Assistant
DX: R05.1 Acute cough (principal)

== ENCOUNTER 2022-01-12 08:54 | Outpatient (CLI) | payer OTHER ==
[2022-01-12 14:32] LABS: BASOPHILS # (AUTO) 0.1 10^3/uL (0.0-0.1); BASOPHILS % (AUTO) 0.6 %; EOSINOPHILS # (AUTO) 0.2 10^3/uL (0.0-0.7); HCT - HEMATOCRIT 48.3 % (37.0-47.0); HGB - HEMOGLOBIN 14.2 g/dL (12.0-16.0); LYMPHOCYTES # (AUTO) 4.8 10^3/uL (1.5-3.5); LYMPHOCYTES % (AUTO) 26.3 %; MEAN CORPUSCULAR HEMOGLOBIN 23.7 pg (27.0-31.0); MEAN CORPUSCULAR HGB CONC 29.4 g/dL (32.0-36.0); MEAN CORPUSCULAR VOLUME 80.8 fL (81.0-99.0); MEAN PLATELET VOLUME 11.9 fL (7.9-10.8); MONOCYTES # (AUTO) 0.9 10^3/uL (0.0-1.0); MONOCYTES % (AUTO) 4.9 %; NEUTROPHILS # (AUTO) 12.1 10^3/uL (1.5-6.6); NEUTROPHILS % (AUTO) 66.6 %; PLT - PLATELET COUNT 429 10^3/uL (130-450); RED BLOOD COUNT 5.98 10^6/uL (4.20-5.40); RED CELL DISTRIBUTION WIDTH 17.1 % (12.0-15.0); WHITE BLOOD COUNT 18.1 x10^3/uL (4.8-10.8)
[2022-01-12 15:37] LABS: ALBUMIN 3.5 g/dL (3.2-5.5); ALKALINE PHOSPHATASE 62 IU/L (42-121); ALT ALANINE AMINOTRANSFERASE 51 IU/L (10-60); AST ASPARTATE AMINOTRANSFERASE 18 IU/L (10-42); BILIRUBIN,TOTAL 0.7 mg/dL (0.2-1.0); BUN - BLOOD UREA NITROGEN 21 mg/dL (6-20); CALCIUM 9.3 mg/dL (8.5-10.3); CARBON DIOXIDE - CO2 27 mmol/L (21-32); CHLORIDE 101 mmol/L (101-111); CHOL/HDL RATIO 2.8 (<4.4); CHOLESTEROL 127 mg/dL; CREATININE 0.7 mg/dL (0.4-1.0); GFR - MDRD 90 (>89); GLUCOSE 83 mg/dL (70-100); HDL CHOLESTEROL 45 mg/dL; LDL CHOLESTEROL,CALCULATED 70 mg/dL; LDL/HDL RATIO 1.6 (<4.4); POTASSIUM 3.9 mmol/L (3.5-5.0); SODIUM 139 mmol/L (135-145); TRIGLYCERIDES 60 mg/dL; VLDL CHOLESTEROL 12 mg/dL
[2022-01-12 15:53] LABS: THYROID STIMULATING HORMONE 1.44 uIU/mL (0.34-5.60)
== END 2022-01-12 08:55 | disposition home or self-care (01) ==
LOC: LAB.S 08:54
PROVIDERS: ATTEND Registered Nurse
DX: Z79.899 Other long term (current) drug therapy (principal); Z13.220 Encounter for screening for lipoid disorders; Z13.29 Encounter for screening for other suspected endocrine disorder
CPT/HCPCS: 36415; 80053; 80061; 83721; 84443; 85025

== ENCOUNTER 2022-02-01 08:18 | Outpatient (CLI) | payer OTHER ==
[2022-02-01 15:05] LABS: BASOPHILS # (AUTO) 0.1 10^3/uL (0.0-0.1); BASOPHILS % (AUTO) 0.8 %; EOSINOPHILS # (AUTO) 0.3 10^3/uL (0.0-0.7); HGB - HEMOGLOBIN 13.3 g/dL (12.0-16.0); LYMPHOCYTES # (AUTO) 1.9 10^3/uL (1.5-3.5); LYMPHOCYTES % (AUTO) 24.3 %; MEAN CORPUSCULAR HEMOGLOBIN 23.8 pg (27.0-31.0); MEAN CORPUSCULAR HGB CONC 29.6 g/dL (32.0-36.0); MEAN CORPUSCULAR VOLUME 80.4 fL (81.0-99.0); MEAN PLATELET VOLUME 10.7 fL (7.9-10.8); MONOCYTES # (AUTO) 0.6 10^3/uL (0.0-1.0); MONOCYTES % (AUTO) 7.7 %; NEUTROPHILS # (AUTO) 4.9 10^3/uL (1.5-6.6); NEUTROPHILS % (AUTO) 62.9 %; PLT - PLATELET COUNT 430 10^3/uL (130-450); RED CELL DISTRIBUTION WIDTH 16.6 % (12.0-15.0); WHITE BLOOD COUNT 7.8 x10^3/uL (4.8-10.8)
== END 2022-02-01 08:19 | disposition home or self-care (01) ==
LOC: LAB.S 08:18
PROVIDERS: ATTEND Registered Nurse
DX: R79.9 Abnormal finding of blood chemistry, unspecified (principal); Z79.899 Other long term (current) drug therapy; Z13.220 Encounter for screening for lipoid disorders; Z13.29 Encounter for screening for other suspected endocrine disorder
CPT/HCPCS: 36415; 85025

== ENCOUNTER 2022-04-03 10:04 | Outpatient (CLI) | payer OTHER ==
[2022-04-03 14:14] LABS: BASOPHILS # (AUTO) 0.1 10^3/uL (0.0-0.1); BASOPHILS % (AUTO) 1.1 %; EOSINOPHILS # (AUTO) 0.3 10^3/uL (0.0-0.7); EOSINOPHILS % (AUTO) 3.1 %; HCT - HEMATOCRIT 45.9 % (37.0-47.0); HGB - HEMOGLOBIN 13.2 g/dL (12.0-16.0); LYMPHOCYTES # (AUTO) 2.7 10^3/uL (1.5-3.5); LYMPHOCYTES % (AUTO) 31.2 %; MEAN CORPUSCULAR HGB CONC 28.8 g/dL (32.0-36.0); MEAN CORPUSCULAR VOLUME 83.6 fL (81.0-99.0); MEAN PLATELET VOLUME 10.9 fL (7.9-10.8); MONOCYTES # (AUTO) 0.7 10^3/uL (0.0-1.0); MONOCYTES % (AUTO) 8.1 %; NEUTROPHILS % (AUTO) 56.3 %; PLT - PLATELET COUNT 384 10^3/uL (130-450); RED BLOOD COUNT 5.49 10^6/uL (4.20-5.40); RED CELL DISTRIBUTION WIDTH 16.4 % (12.0-15.0); WHITE BLOOD COUNT 8.8 x10^3/uL (4.8-10.8)
[2022-04-04 18:03] LABS: CALCIUM 10.7 mg/dL (8.5-10.3); CREATININE 0.9 mg/dL (0.4-1.0); POTASSIUM 4.2 mmol/L (3.5-5.0)
== END 2022-04-03 10:05 | disposition home or self-care (01) ==
LOC: LAB.S 10:04
PROVIDERS: ATTEND Registered Nurse
DX: R79.9 Abnormal finding of blood chemistry, unspecified (principal)
CPT/HCPCS: 36415; 80048; 85025

== ENCOUNTER 2022-04-06 07:49 | Outpatient (CLI) | payer OTHER ==
[2022-04-08 04:09] LABS: VITAMIN D 25-HYDROXY 97.1 ng/mL (30.0-100.0)
== END 2022-04-06 07:50 | disposition home or self-care (01) ==
LOC: LAB.S 07:49
PROVIDERS: ATTEND Registered Nurse
DX: E83.52 Hypercalcemia (principal)
CPT/HCPCS: 36415; 82306; 82330; 83970

== ENCOUNTER 2022-08-04 09:55 | Emergency (ER) | payer OTHER ==
[2022-08-04 11:03] LABS: BASOPHILS # (AUTO) 0.1 10^3/uL (0.0-0.1); BASOPHILS % (AUTO) 0.8 %; EOSINOPHILS # (AUTO) 0.2 10^3/uL (0.0-0.7); EOSINOPHILS % (AUTO) 2.1 %; HCT - HEMATOCRIT 42.5 % (37.0-47.0); HGB - HEMOGLOBIN 13.2 g/dL (12.0-16.0); LYMPHOCYTES # (AUTO) 2.3 10^3/uL (1.5-3.5); LYMPHOCYTES % (AUTO) 20.6 %; MEAN CORPUSCULAR HGB CONC 31.1 g/dL (32.0-36.0); MEAN CORPUSCULAR VOLUME 80.6 fL (81.0-99.0); MEAN PLATELET VOLUME 10.8 fL (7.9-10.8); MONOCYTES # (AUTO) 0.8 10^3/uL (0.0-1.0); MONOCYTES % (AUTO) 7.4 %; NEUTROPHILS # (AUTO) 7.7 10^3/uL (1.5-6.6); NEUTROPHILS % (AUTO) 68.7 %; PLT - PLATELET COUNT 378 10^3/uL (130-450); RED BLOOD COUNT 5.27 10^6/uL (4.20-5.40); RED CELL DISTRIBUTION WIDTH 15.5 % (12.0-15.0); WHITE BLOOD COUNT 11.2 x10^3/uL (4.8-10.8)
[2022-08-04] MEDS ORDERED: iohexoL-300 100 ML VIAL ONE (11:11)
[2022-08-04] MEDS ORDERED: KETOROLAC 30 MG/ML VIAL IVP STA (11:24)
[2022-08-04 11:33] LABS: ALBUMIN 3.7 g/dL (3.2-5.5); BILIRUBIN,TOTAL 0.9 mg/dL (0.2-1.0); CALCIUM 8.6 mg/dL (8.5-10.3); CREATININE 0.9 mg/dL (0.4-1.0); POTASSIUM 3.4 mmol/L (3.5-5.0); TOTAL PROTEIN 7.5 g/dL (6.7-8.2)
[2022-08-04 12:20] LABS: BILIRUBIN,URINE NEGATIVE (NEGATIVE); GLUCOSE, URINE (UA) NEGATIVE (NEGATIVE); KETONES,URINE (UA) NEGATIVE (NEGATIVE); LEUKOCYTE ESTERASE, URINE NEGATIVE (NEGATIVE); NITRITE,URINE NEGATIVE (NEGATIVE); OCCULT BLOOD,URINE NEGATIVE (NEGATIVE); PROTEIN,URINE NEGATIVE (NEGATIVE); UROBILINOGEN,URINE 0.2 (NORMAL) E.U./dL (NORMAL)
[2022-08-04 12:21] VITALS: BP 139/86
[2022-08-04 12:21] LABS: CLARITY,URINE CLEAR (CLEAR)
[2022-08-04 12:22] LABS: HCG UR QUAL NEGATIVE
--- NOTE | 2022-08-04 12:23 | CT Report ---
PROCEDURE: ABDOMEN/PELVIS W INDICATIONS: LLQ Abdominal pain, diverticulitis suspected CONTRAST: 100ml omni 300 TECHNIQUE: After the administration of intravenous contrast, 5 mm thick sections acquired from the diaphragms to the symphysis. 5 mm thick coronal and sagittal reformats were acquired. For radiation dose reducti on, the following was used: automated exposure control, adjustment of mA and/or kV according to meryl ent size. COMPARISON: None. FINDINGS: Image quality: Images are mildly degraded by artifact related to patient body habitus. Diagnostic inf ormation is obtained. Lung bases and heart: Unremarkable. Liver: No solid mass. Gallbladder and biliary tree: Spleen: No splenomegaly. Pancreas: No pancreatic ductal dilation. Adrenals: No adrenal nodule. Kidneys and ureters: No hydronephrosis. No renal cystic lesion which requires follow up. No solid mas s. Bowel and peritoneum: A few diverticula are seen in the colon. There is probable fat stranding bowel wall thickening surrounding a diverticulum at a loop of sigmoid colon in the pelvis, although evaluat ion is mildly compromised by artifact at this level. No fluid collection or pneumoperitoneum. No sign s of bowel obstruction. Normal appendix. Lymph nodes: No central or retroperitoneal adenopathy. Vessels: No infrarenal aortic aneurysm. PELVIS Reproductive organs: Unremarkable. Bladder: No abnormal wall thickening, accounting for underdistension. Pelvic lymph nodes: No pelvic adenopathy by size criteria. Bones: No aggressive osseous abnormality. Degenerative changes are seen at the lumbosacral junction. Other: No significant ventral or inguinal hernia. IMPRESSION: Suspected mild acute uncomplicated sigmoid diverticulitis. Reviewed by: Gutierrez Vazquez MD on 08/04/2022 12:22 PM PDT Approved by: Gutierrez Vazquez MD on 08/04/2022 12:22 PM PDT Station ID: [id number]
[2022-08-04] MEDS ORDERED: HYDROcod/ACETAM 5/325 MG TABLET PO STA (12:48)
--- NOTE | 2022-08-04 12:51 | ED Physician Documentation ---
PD HPI ABD PAIN - Stated complaint Stated Complaint: ABD PX - Chief complaint Chief Complaint: Abd Pain - History obtained from History obtained from: Patient - History of Present Illness Pain level max: 6 Pain level now: 5 Quality: Cramping, Aching, Pain Associated symptoms: No: Fever, Nausea, Vomiting, Hematemesis, Diarrhea, Constipation, Melena, Hematochezia, Dysuria, Hematuria, Chest pain - Additional information Additional information: 47-year-old female presents to the emergency department with lower abdominal/pelvic pain. Ongoing for the past several days. Described as cramping. No fevers. No chills. No constipation. No diarrhea. No blood in the stool. No vaginal bleeding or discharge. Patient is not sexually active. Review of Systems Constitutional: denies: Fever, Chills GI: denies: Vomiting, Diarrhea Skin: denies: Rash Musculoskeletal: denies: Neck pain, Back pain Neurologic: denies: Headache PD PAST MEDICAL HISTORY - Past Medical History Cardiovascular: None Respiratory: Asthma, Sleep apnea GI: None : None Psych: Depression Musculoskeletal: None Derm: Herpes zoster - Past Surgical History Past Surgical History: Yes HEENT: Myringotomy (tubes), Tonsil/Adenoidectomy - Present Medications Home Medications: Ambulatory Orders Medication Instructions Recorded Confirmed Albuterol Sulfate [Proair Hfa] 8.5 gm IH Q4HR 09/12/12 10/12/14 lisinopriL [Prinivil] 20 mg PO DAILY 09/12/12 10/12/14 Vit D3/Folic Acid/B2/B6/B12 1 intlu PO DAILY 09/18/12 10/12/14 [Folgard Tablet] Albuterol 2.5 mg INH Q4HR PRN 10/12/14 10/12/14 Cyclobenzaprine [Flexeril] 10 mg ORAL DAILY 10/13/17 10/13/17 Gabapentin 300 mg PO 10/13/17 Neomycin/Poly/Dex Ophth Drops 1 drops RIGHTEYE QID #1 bottle 10/13/17 [Maxitrol Ophth Drops] Neomycin/Poly/Dex Ophth Drops 1 drops RIGHTEYE QID #1 bottle 12/22/18 [Maxitrol Ophth Drops] Amitriptyline [Elavil] 25 mg PO HS 14 Days #14 tablet 04/10/21 Valacyclovir HCl [Valtrex] 1,000 mg PO TID #15 tablet 04/10/21 dexAMETHasone [Decadron] 4 mg PO DAILY #5 tablet 04/10/21 oxyCODONE [Roxicodone] 5 mg PO Q6H PRN #20 tablet 04/10/21 Ciprofloxacin HCl [Cipro] 500 mg PO BID #20 tablet 08/04/22 HYDROcod/ACETAM 5/325 [[place] 5/325] 1 - 2 ea PO Q6H PRN #14 tablet 08/04/22 metroNIDAZOLE [Flagyl] 500 mg PO TID #30 tablet 08/04/22 - Allergies Allergies/Adverse Reactions: Allergies Allergy/AdvReac Type Severity Reaction Status Date / Time Penicillins Allergy Intermediate Rash Verified 04/10/21 09:19 - Social History Does the pt smoke?: No Smoking Status: Never smoker Does the pt drink ETOH?: Yes Does the pt have substance abuse?: No - Immunizations Immunizations are current?: No Immunizations: TDAP current <10years - POLST Patient has POLST: No PD ED PE NORMAL - Vitals Vital signs reviewed: Yes - General General: Alert and oriented X 3, No acute distress, Well developed/nourished - HEENT HEENT: Moist mucous membranes - Neck Neck: Supple, no meningeal sign - Cardiac Cardiac: RRR, Strong equal pulses - Respiratory Respiratory: No respiratory distress, Clear bilaterally - Abdomen Abdomen: Soft, Non distended, Other (TTP across the lower abdomen. no peritoneal signs. o/w benign exam) - Back Back: No CVA TTP, No spinal TTP - Derm Derm: Warm and dry - Neuro Neuro: Alert and oriented X 3 - Psych Psych: Normal mood, Normal affect Results - Vitals Vitals: Vital Signs - 24 hr 08/04/22 08/04/22 10:06 12:16 Temperature 36.7 C Heart Rate 97 71 Respiratory 22 20 Rate Blood Pressure 159/84 H 139/86 H O2 Saturation 95 99 Oxygen O2 Source Room air - Labs Labs: Laboratory Tests 08/04/22 08/04/22 08/04/22 10:56 11:17 12:12 WBC 11.2 H RBC 5.27 Hgb 13.2 Hct 42.5 MCV 80.6 L MCH 25.0 L MCHC 31.1 L RDW 15.5 H Plt Count 378 MPV 10.8 Neut # (Auto) 7.7 H Lymph # (Auto) 2.3 [place] # (Auto) 0.8 Eos # (Auto) 0.2 Baso # (Auto) 0.1 Absolute Nucleated RBC 0.00 Nucleated RBC % 0.0 Sodium 138 Potassium 3.4 L Chloride 101 Carbon Dioxide 28 Anion Gap 9.0 BUN 24 H Creatinine 0.9 Estimated GFR (MDRD) 67 L Glucose 93 Calcium 8.6 Total Bilirubin 0.9 AST 16 ALT 20 Alkaline Phosphatase 62 Total Protein 7.5 Albumin 3.7 Globulin 3.8 Albumin/Globulin Ratio 1.0 Lipase 26 Urine Color DARK YELLOW Urine Clarity CLEAR Urine pH 6.0 Ur Specific [place] 1.025 Urine Protein NEGATIVE Urine Glucose (UA) NEGATIVE Urine Ketones NEGATIVE Urine Occult Blood NEGATIVE Urine Nitrite NEGATIVE Urine Bilirubin NEGATIVE Urine Urobilinogen 0.2 (NORMAL) Ur Leukocyte Esterase NEGATIVE Ur Microscopic Review NOT INDICATED Urine Culture Comments NOT INDICATED Urine HCG, Qual NEGATIVE - Rads (name of study) CT abd/pelvis Relevant Findings:: Final report received, See rad report PD Medical Decision Making - ED course Complexity details: reviewed results, re-evaluated patient, considered differential, d/w patient ED course: 47-year-old female presents to the emergency department lower abdominal pain for the past several days. CT scan shows mild diverticulitis. We discussed risks and benefits of treatment with antibiotics including C. difficile diarrhea versus watchful waiting, patient is elected antibiotics. We will place the patient on antibiotics. We will have her follow-up with her PCP for further care. Patient is well-appearing, nontoxic. Afebrile. No significant lab abnormalities. Patient counseled regarding signs and symptoms for which I believe and urgent re-evaluation would be necessary. Patient with good understanding of and agreement to plan and is comfortable going home at this time This document was made in part using voice recognition software. While efforts are made to proofread this document, sound alike and grammatical errors may occur. Departure - Departure Disposition: 01 Home, Self Care Clinical Impression: Diverticulitis Condition: Good Instructions: ED Diverticulitis Follow-Up: Jennifer Beavers ARNP [Primary Care Provider] - Within 1 week Prescriptions: Ciprofloxacin HCl [Cipro] 500 mg PO BID #20 tablet metroNIDAZOLE [Flagyl] 500 mg PO TID #30 tablet HYDROcod/ACETAM 5/325 [[place] 5/325] 1 - 2 ea PO Q6H PRN #14 tablet PRN Reason: Pain Comments: Please follow-up with your doctor for further care. Your prescriptions were sent to [facility] in [place]. We will start you on antibiotics for the diverticulitis. Please take all antibiotics until gone. Please return if you worsen. I am prescribing a short course of narcotic pain medication for you. These are potentially dangerous and addictive medications that should be used carefully. These medications may constipate you. Take an glgo-mey-jaksbvp stool softener (docusate) twice daily with plenty of water while taking these medications. If you go 24 hours without a bowel movement, take obmf-uyo-fznlvxy miralax, per package instructions. Do not drink or drive while taking these medications. If you received narcotic or sedating medications while in the emergency department, do not drive for 24 hours. Store this medication in a safe, secure place and out of reach of children. It is a violation of federal law to give or sell this medication to another person or to use in a manner other than prescribed. The ED will not refill narcotic prescriptions, including prescriptions lost or stolen. To dispose of unwanted medications: 1. [facility] at [address] in [place] has a medication drop box. They accept prescription medications (in pill form) Sunday through Sunday 9:00 a.m. to 5:00 p.m. 2. [facility] accepts prescription medications (in pill form only) for disposal year round. Call for more information. 3. Contact the [facility] for the next [facility] sponsored prescription drug collection event. , [phone], or [phone]; Discharge Date/Time: 08/04/22 13:34
[2022-08-04] MEDS ORDERED: iohexoL-300 100 ML VIAL IVP ONE (13:04)
== END 2022-08-04 13:34 | disposition home or self-care (01) ==
LOC: ED 09:55
DX: K57.32 Diverticulitis of large intestine without perforation or abscess without bleeding (principal)
CPT/HCPCS: 36415; 74177; 80053; 81003; 81025; 83690; 85025; 96374; 99283; 99284; Q9967; 81001; 87086

== ENCOUNTER 2023-04-23 13:02 | Outpatient (CLI) | payer OTHER | END 2023-04-23 13:03 | disposition home or self-care (01) | LOC: NS 13:02 | PROVIDERS: ATTEND Registered Nurse | DX: Z71.3 Dietary counseling and surveillance (principal); E66.01 Morbid (severe) obesity due to excess calories; Z68.44 Body mass index [BMI] 60.0-69.9, adult | CPT/HCPCS: 97802 ==

== ENCOUNTER 2023-05-28 12:54 | Outpatient (CLI) | payer OTHER | END 2023-05-28 12:55 | disposition home or self-care (01) | LOC: NS 12:54 | PROVIDERS: ATTEND Registered Nurse | DX: Z71.3 Dietary counseling and surveillance (principal); E66.01 Morbid (severe) obesity due to excess calories; Z68.43 Body mass index [BMI] 50.0-59.9, adult | CPT/HCPCS: 97803 ==